=== PATIENT | male | born 1975 | race Caucasian/White ===

== ENCOUNTER 2022-04-27 07:59 | Outpatient (CLI) | payer SELFPAY ==
--- NOTE | 2022-04-27 08:05 | ECHOD_ITS ---
Reason For Study: CSA Procedure This was a 2D Doppler, Color Flow transthoracic echocardiogram. Exam performed in department. Left Ventricle Normal left ventricle. The left ventricular ejection fraction is 60 %. Right Ventricle Normal right ventricle. Atria The left and right atria are normal. Mitral Valve Trivial mitral valve insufficiency. Tricuspid Valve Trivial tricuspid valve insufficiency. Unable to estimate RV systolic pressure due to insufficient tricuspid regurgitant envelope. Aortic Valve There is no aortic stenosis. No aortic valve insufficiency. Pulmonic Valve The pulmonic valve is not well visualized. Great Vessels Normal sized aortic root. Pericardium/Pleural No pericardial effusion. MMode/2D Measurements & Calculations LVIDd: 4.1 cm IVSd: 0.78 cm Ao root diam: 3.1 cm LVIDs: 2.6 cm LVPWd: 1.0 cm FS: 36.2 % LAV(MOD-bp): 45.8 ml LVAd ap4: 24.5 cm2 LVAd ap2: 24.4 cm2 LAV(MOD-bp) Indexed: 21.9 ml/m2 LVLd ap4: 6.9 cm LVLd ap2: 7.3 cm LAV(MOD-sp2): 43.6 ml EDV(MOD-sp4): 69.1 ml EDV(MOD-sp2): 65.7 ml LAV(MOD-sp4): 45.8 ml EDV(sp4-el): 73.7 ml EDV(sp2-el): 69.2 ml LVAs ap4: 13.8 cm2 LVAs ap2: 14.1 cm2 LVLs ap4: 5.6 cm LVLs ap2: 6.1 cm ESV(MOD-sp4): 28.5 ml ESV(MOD-sp2): 26.6 ml ESV(sp4-el): 28.9 ml ESV(sp2-el): 28.0 ml EF(MOD-sp4): 58.8 % EF(MOD-sp2): 59.4 % EF(sp4-el): 60.7 % SV(MOD-sp4): 40.6 ml SV(MOD-sp2): 39.0 ml SV(sp4-el): 44.8 ml LA dimension(2D): 3.9 cm LA A4 area: 16.5 cm2 RA A4 area: 18.7 cm2 Time Measurements MV dec time: 0.14 sec Doppler Measurements & Calculations MV E max michael: 83.6 cm/sec Lat Peak E' Michael: 13.8 cm/sec Med Peak E' Michael: 12.3 cm/sec MV A max michael: 56.8 cm/sec E/E' lat: 6.1 E/E' med: 6.8 MV E/A: 1.5 MV V2 max: 97.2 cm/sec MV dec slope: 625.5 cm/sec2 Ao V2 max: 100.9 cm/sec MV max P.8 mmHg Ao max P.1 mmHg MV V2 mean: 54.3 cm/sec Ao V2 mean: 71.9 cm/sec MV mean P.4 mmHg Ao mean P.3 mmHg MV V2 VTI: 29.6 cm Ao V2 VTI: 22.5 cm AV (velocity ratio): 0.73 LV V1 max: 76.1 cm/sec PA V2 max: 91.7 cm/sec TR max michael: 256.3 cm/sec LV V1 max P.3 mmHg PA V2 mean: 65.4 cm/sec TR max P.3 mmHg LV V1 mean P.2 mmHg LV V1 mean: 51.5 cm/sec LV V1 VTI: 16.5 cm ECHO/Echo Complete Interpretation Summary The left ventricular ejection fraction is 60 %. Ordering Physician: Victoriano Paul V Performed By: Gillian Hernandez RCS
== END 2022-04-27 23:59 | disposition home or self-care (01) ==
PROVIDERS: Visit Provider Internal Medicine Pulmonary Disease
DX: G47.31 Primary central sleep apnea (principal)
CPT/HCPCS: 93306

== ENCOUNTER → 2022-09-04 | Outpatient (CLI) | payer SELFPAY ==
--- NOTE | 2022-09-04 08:04 | VDLE_ITS ---
Reason For Study: RLE swelling RIGHT GSV is normal. CFV is compressible, spontaneous, phasic, competent and demonstrates normal augmentation. FV is compressible, spontaneous, phasic, competent and demonstrates normal augmentation. POP V is compressible, spontaneous, phasic, competent and demonstrates normal augmentation. T/P Trunk is compressible. PTV is compressible. RT PerV is compressible. Procedure This is a venous duplex using B-mode, color flow and spectral Doppler. Exam performed in department. A preliminary report was called and/or faxed to Dr. Metz @ [phone] @ 8:30 am. Image # 5 is the PopV & T/P trunk. Image #6 is the PTVs. VL/Venous Duplex US, Unilateral Interpretation Summary Deep veins of the right lower extremity are patent and compressible segmentally . There is no evidence of right lower extremity deep vein thrombosis. The right great sapheno us vein appears patent and compressible segmentally. Ordering Physician: Lavonne Metz Referring Physician: Lavonne Metz Performed By: Mari Armas, FANNY, RVT
== END | disposition home or self-care (01) ==
LOC: CVS 08:03
DX: R60.0 Localized edema (principal)
CPT/HCPCS: 93971